=== PATIENT | female | born 1975 | race Caucasian/White ===

== ENCOUNTER → 2020-06-12 | Outpatient (CLI) | payer BC ==
[~2020-06-12] MED LIST: IOHEXOL 240 MG/ML 50ML VIAL. PO ONE; IOHEXOL 300 MG/ML 100ML VIAL. IV ONE
--- NOTE | 2020-06-12 10:38 | KCIC ---
EXAM: Abdomen and pelvis CT with intravenous contrast. HISTORY: Right lower quadrant pain. TECHNIQUE: Computed tomographic images of the abdomen and pelvis were obtained following the administ ration of intravenous contrast. Multiplanar reformatting was performed. *One or more of the following individualized dose reduction techniques were utilized for this examina tion: 1. Automated exposure control. 2. Adjustment of the mA and/or kV according to patient size. 3. Use of iterative reconstruction technique. COMPARISON: None. FINDINGS: Evaluation of the lower thorax demonstrates a 10 mm nodule with adjacent groundglass and li near opacity within the posterior lateral right lower lobe. There is a 1.2 cm groundglass opacity wit hin the medial right lower lobe. There is suspected right middle lobe and lingular atelectasis or sca rring. The heart is normal in size. No suspicious hepatic lesion is seen. The gallbladder, pancreas and adrenal glands are unremarkable. There is a splenule adjacent to an otherwise unremarkable spleen. There is a 1.6 cm simple appearing left renal parapelvic cyst. There is a 9 mm simple cyst within the posterior mid zone of the left kid rozina. No solid renal lesion is seen. There is no hydronephrosis. There is an incidental accessory left renal artery. There is no appendicitis. There is no bowel obstruction. There is no abnormal bowel wall thickening. The aorta is normal in caliber. There is no lymphadenopathy. The urinary bladder is unremarkable. The re is slight asymmetric fat within the left renal canal. There is no suspicious osseous lesion. IMPRESSION: 1. No acute abdominal or pelvic finding. 2. 10 mm solid nodule within the right lower lobe. There is also a 1.2 cm groundglass opacity within the right lower lobe. These may be postinfectious or postinflammatory in etiology. However, the possi bility of neoplasm is not excluded. The solid nodule is likely within limits for assessment with PET/ CT. 3. Small simple appearing left renal cyst. Follow-up is not routinely recommended for simple cysts. Electronically signed by: Bessy Choe MD (06/12/2020 10:35 AM) [id number]
== END ==
LOC: KCIC CT 08:59
PROVIDERS: ATTEND Family Medicine
DX: N28.1 Cyst of kidney, acquired (principal); K76.9 Liver disease, unspecified; R91.1 Solitary pulmonary nodule; R19.00 Intra-abdominal and pelvic swelling, mass and lump, unspecified site
CPT/HCPCS: 74177; Q9966; Q9967